=== PATIENT | female | born 1980 | race Hispanic/Latino ===

== ENCOUNTER 2020-07-19 17:59 | Emergency (ER) | payer SELFPAY ==
[~2020-07-19] VITALS: Ht 165.1 cm; Wt 88.5 kg
[2020-07-19] MEDS ORDERED: ONDANSETRON HCL INJ 2MG/ML 2ML 2 MG/ML VIAL IV STA (18:13)
[2020-07-19] MEDS ORDERED: IOPAMIDOL 370 MG/ML 200 ML INFUS..BTL INJ ONE (18:25)
[2020-07-19] MEDS ORDERED: SODIUM CHLORIDE 0.9% 50ML 0 ML ONE (18:25)
[2020-07-19] MEDS ORDERED: TETRACAINE HCL 0.5% OPTH SOLN 4 ML BTL OD ONE (18:30)
[2020-07-19] MEDS ORDERED: FLUORESCEIN SOD(OPTH) 1 MG STRP OP ONE (18:30)
[2020-07-19] MEDS ORDERED: FLUORESCEIN SOD(OPTH) 1 MG STRP ONE (18:33)
[2020-07-19] MEDS ORDERED: POLYTRIM EYE DR10 ML OP (18:41)
[2020-07-19] MEDS ORDERED: LEVOFLOXACIN5 ML OP (18:55)
[2020-07-19 19:09] VITALS: BP 141/89
--- NOTE | 2020-07-19 20:06 | Emergency Department Note ---
History of Present Illnes History of Present Illness Chief Complaint: Eye, Ear, Nose, Throat, Dental History of Present Illness This is a 40 year old female with right eye watering, irritation, and burning. Since awoke this AM. Wears soft contacts. Did not put contacts in today due to symptoms. No trauma. No vision changes. No headache. No fever, chills. Historian: Patient Arrival Mode: Car Rock Climbing Instructor Required: No Onset (how long ago): hour(s) Location: Rt eye Quality: burning Radiation: Reports non-radiation Severity: mild Onset quality: gradual Duration (how long): hour(s) Timing of current episode: intermittent Progression: waxing and waning Chronicity: new Context: Denies recent illness, Denies trauma/injury Relieving factors: other (OTC [place] allergy eye) Exacerbating factors: other (Wears soft contacts. Last wore yesterday. Did not put in today due to symptoms.) Past Medical/Family History Physician Review I have reviewed the patient's past medical and family history. Any updates have been documented here. Past Medical History Recent Fever: No Clinical Suspicion of Infectio: No New/Unexplained Change in Ment: No Past Medical History: None Past Surgical History: None Social History Smoking Cessation: Never Smoker Counseling Performed: No Alcohol Use: None Any Illegal Drug Use: No Physically hurt or threatened: No Other Any Pre-Existing Lines (PICC,: No Review of Systems Review of Systems Constitutional: Denies chills, Denies fever, Denies malaise EENTM: Reports tearing, Reports other (no pain - "irritation", intermittant "burning"); Denies eye pain, Denies blurred vision, Denies double vision, Denies ear pain, Denies ear discharge, Denies nose pain, Denies nose congestion, Denies throat pain, Denies throat swelling, Denies mouth swelling Cardiovascular: Denies chest pain, Denies palpitations Respiratory: Denies cough, Denies dyspnea, Denies dyspnea on exertion Gastrointestinal: Denies abdominal pain, Denies constipation, Denies diarrhea, Denies nausea, Denies vomiting Genitourinary: Denies discharge, Denies dysuria, Denies frequency, Denies hematuria Musculoskeletal: Denies back pain Neurological: Denies headache Psychological: Denies anxiety Hematological/Lymphatic: Denies swollen glands Physical Exam Related Data Allergies: Coded Allergies: No Known Allergies (Unverified , 07/19/20) Triage Vital Signs Vital Signs Date Time Temp Pulse Resp B/P (MAP) Pulse Ox O2 Delivery O2 Flow Rate FiO2 07/19/20 18:00 98.7 109 18 181/106 97 Room Air Physical Exam CONSTITUTIONAL Constitutional: Present well-developed, Present well-nourished HENT HENT: Present normocephalic, Present atraumatic, Present oropharynx clear/moist, Present nose normal HENT L/R: Present left TM normal, Present right TM normal, Present left canal normal, Present right canal normal, Present left ext ear normal, Present right ext ear normal EYES Eyes: Reports EOM normal, Reports right eye discharge (mild and clear), Reports other (Bilateral conjuntivae injected. Tetracine drops applied to right eye with no improvement. Rt. eye examined with martínez lamp after fluoricine applied and had no uptake. Rt. eyelid inverted and no FB appreciated.); Denies conjunctivae normal, Denies left eye discharge, Denies scleral icterus NECK Neck: Present ROM normal, Present supple PULMONARY Pulmonary: Present effort normal, Present breath sounds normal; Absent respiratory distress, Absent rales, Absent rhonchi CARDIOVASCULAR Cardiovascular: Present regular rhythm, Present heart sounds normal, Present capillary refill normal, Present normal rate; Absent irregular rhythm GASTROINTESTINAL Abdominal: Present soft, Present nontender GENITOURINARY SKIN Skin: Absent rash MUSCULOSKELETAL Musculoskeletal: Absent deformity NEUROLOGICAL Neurological: Present alert PSYCHOLOGICAL Psychological: Present mood/affect normal, Present thought content normal Assessment & Plan Medical Decision Making MDM Differential dx. includes, but not limited to conjunctivitis (bacterial, viral, Allergic, toxic, noninfectous/noninflammatory), URI, Blepharitis, herpes, zoster, FB, corneal abrasion/ulcer. Will treat with fluoroquinolone in this contact wearing patient who will get prompt followup. No contact use until symptoms clear. Assessment & Plan Final Impression: (1) Conjunctivitis Depart Disposition: HOME, SELF-CARE Last Vital Signs Date Time Temp Pulse Resp B/P (MAP) Pulse Ox O2 Delivery O2 Flow Rate FiO2 07/19/20 18:00 98.7 109 18 181/106 97 Room Air Home Meds Active Scripts Levofloxacin (LEVOFLOXACIN) 5 Ml Drops, 2 DROP OP Q2HR for 7 Days Prov:KYARA SOLER MD 07/19/20 Discontinued Scripts Polymyxin B Sulfate/Tmp (POLYTRIM EYE DROPS) 10 Ml Drops, 2 DROP OP Q4HWA for 10 Days Prov:KYARA SOLER MD 07/19/20 Medications in the ED Ondansetron HCl 4 mg NOW STAT IV ; Start 07/19/20 at 18:13; Stop 07/19/20 at 18 :14; Status UNV Sodium Chloride 0 ml @ ud STK-MED ONCE .ROUTE ; Start 07/19/20 at 18:25; Stop 07/19/20 at 18:26; Status Cancel Iopamidol STK-MED ONCE INJ ; Start 07/19/20 at 18:25; Stop 07/19/20 at 18:26; Status Cancel Tetracaine HCl 1 ml ONCE ONCE OD ; Start 07/19/20 at 18:30; Stop 07/19/20 at 18:31; Status DC Fluorescein Sodium 1 mg ONCE ONCE OP ; Start 07/19/20 at 18:30; Stop 07/19/20 at 18:31; Status DC Fluorescein Sodium 1 mg STK-MED ONCE .ROUTE ; Start 07/19/20 at 18:33; Stop 07/19/20 at 18:28; Status DC KYARA SOLER MD Jul 19, 2020 18:48
== END 2020-07-19 19:05 | disposition home or self-care (01) ==
LOC: FSED 18:12
DX: H10.9 Unspecified conjunctivitis (principal)
CPT/HCPCS: 99282; Q9967